=== PATIENT | male | born 1975 | race Hispanic/Latino ===

== ENCOUNTER → 2024-06-02 | Outpatient (CLI) | payer OTHER ==
--- NOTE | 2024-06-02 16:20 | HMCIMG ---
FOOT COMP 3+VWS LT REASON: R/O FOREIGN BODY 3RD TOE TECHNIQUE: 3 views were obtained. FINDINGS: There is no evidence of fracture or dislocation. There is no joint effusion. The soft tissues appear unremarkable. There is no evidence of a radiopaque foreign body. IMPRESSION: No acute finding, no evidence of foreign body.
== END | disposition home or self-care (01) ==
LOC: RAH 15:22
PROVIDERS: ATTEND Student in an Organized Health Care Education/Training Program
DX: S91.342A Puncture wound with foreign body, left foot, initial encounter (principal); X58.XXXA Exposure to other specified factors, initial encounter; Y93.89 Activity, other specified; Y92.89 Other specified places as the place of occurrence of the external cause; Y99.8 Other external cause status
CPT/HCPCS: 73630